=== PATIENT | female | born 1945 | race Caucasian/White ===

== ENCOUNTER → 2019-05-11 13:59 | Outpatient (ROUT) | payer MEDICARE, SELFPAY ==
[2019-05-11 14:19] LABS: Appearance Urine UA CLEAR; Bilirubin Urine UA NEGATIVE (NEGATIVE); Color Urine UA YELLOW; Glucose Urine UA TRACE g/dL (Negative); Ketones Urine UA NEGATIVE (NEGATIVE); Leukocyte Esterase Urine UA TRACE (NEGATIVE); Nitrite Urine UA NEGATIVE (Negative); Occult Blood Urine UA NEGATIVE (Negative); Protein Urine UA 2+ (Negative); Urobilinogen Urine UA 0.2 E.U./dL (0.2)
[2019-05-11 14:32] LABS: pH Urine UA 5.5 (4.5-8.0)
[2019-05-11 14:40] LABS: Bacteria Urine Occasional (0-1); Culture Indicated Urine Specimen Cultured; RBC Urine 1-5/HPF (0-5/HPF); Squamous Epithelial Cell Urine 1-5 /HPF (0-5/HPF); Transitional Epi Cells Urine 0-1/HPF (0-5/HPF); WBC Urine 5-10/HPF (0-5/HPF)
== END ==
PROVIDERS: Visit Provider Family Medicine
DX: R53.1 Weakness (principal)
CPT/HCPCS: 81001; 87086

== ENCOUNTER 2019-06-26 21:35 | Emergency (ER) | payer MEDICARE, MEDICAID, SELFPAY ==
--- NOTE | 2019-06-26 21:38 | DI.RAD.S_ITS ---
PROCEDURE: XR CHEST 1V INDICATIONS: Shortness of breath TECHNIQUE: One view of the chest was acquired. COMPARISON: None. FINDINGS: Surgical changes and devices: Median sternotomy wires.. Lungs and pleura: Lungs are clear. No pleural effusions or pneumothorax. Mediastinum: Mediastinal contours appear normal. Heart is enlarged. Bones and chest wall: No suspicious bony lesions. Overlying soft tissues appear unremarkable. IMPRESSION: No acute cardiopulmonary disease process. Dictated by: Radha Bhakta MD, PhD on 06/27/2019 at 8:20 Approved by: Radha Bhakta MD, PhD on 06/27/2019 at 8:21
[2019-06-26 21:45] VITALS: BP 174/65; PULSE 74; RESP 21; TEMP 36.4; O2SAT 23
--- NOTE | 2019-06-26 21:51 | ED_ITS ---
HPI - General Adult General Chief complaint: Shortness of Breath/Dyspnea Stated complaint: SOB Time Seen by Provider: 06/26/19 21:37 Source: patient Mode of arrival: EMS Limitations: no limitations History of Present Illness HPI narrative: Female with a history of CHF and COPD. Uses oxygen occasionally at home but not on a regular basis was brought in by EMS for evaluation of dyspnea on exertion and shortness of breath with her daily activities. She states that been going on for the past several days but worsening over the past day or so. She also states she has been having chest pressure. She is an insulin-dependent diabetic. States she has never had a heart attack before no stroke in the past. Not on anticoagulation. Her medicine list does have Lasix on it however patient does not know if she is taking it. She states that the nurses dispense her medications to her. She does state that she has had chest pressure over the past couple days. Related Data Home Medications Medication Instructions Recorded Confirmed atorvastatin 06/26/19 fluticasone propionate INTRANASAL 06/26/19 fluticasone propionate [Flovent INHALATION 06/26/19 HFA] furosemide 06/26/19 insulin glargine [Basaglar KwikPen unit SUBCUT 06/26/19 U-100 Insulin] levothyroxine 06/26/19 meloxicam 06/26/19 metformin mg 06/26/19 metoprolol succinate PO 06/26/19 omeprazole 06/26/19 potassium chloride meq PO 06/26/19 pregabalin [Lyrica] 06/26/19 sertraline mg 06/26/19 Allergies Allergy/AdvReac Type Severity Reaction Status Date / Time adhesive tape Allergy Verified 06/26/19 22:26 codeine Allergy Verified 06/26/19 22:26 exenatide Allergy Verified 06/26/19 22:26 fluconazole Allergy Verified 06/26/19 22:26 silicone Allergy Verified 06/26/19 22:26 Review of Systems Constitutional Constitutional: Denies fever(s) and Denies headache(s) ENT Ears, Nose, Mouth, and Throat: Denies headache(s) Cardiovascular Cardiovascular: Reports chest pain (Pressure), Denies edema, Reports dyspnea and Reports dyspnea on exertion Respiratory Respiratory: Denies cough, Reports dyspnea and Reports dyspnea on exertion Gastrointestinal Gastrointestinal: Denies abdominal pain, Denies nausea and Denies vomiting Genitourinary Genitourinary: Denies dysuria Musculoskeletal Musculoskeletal: Denies myalgias and Denies arthralgias Integumentary/Breasts Skin/Breast: Denies lesions and Denies rash Neurologic Neurologic: Denies behavioral changes and Denies headache(s) Psychiatric Psychiatric: Denies behavioral changes Hematologic/Lymphatic Hematologic/Lymphatic: Denies easy bleeding and Denies easy bruising Patient History Medical History Congestive heart failure (Inactive) COPD (chronic obstructive pulmonary disease) (Acute) Social History housing: custodial Exam Initial Vital Signs Initial Vital Signs: Vital Signs Temperature 97.5 F L 06/26/19 21:45 Pulse Rate 74 06/26/19 21:45 Respiratory Rate 21 06/26/19 21:45 Blood Pressure 174/65 H 06/26/19 21:45 Pulse Oximetry 23 L 06/26/19 21:45 Const General: cooperative, comfortable, well developed and well groomed Limitations: mental status not altered HENME Head: normal to inspection and normocephalic Chest Chest: normal inspection of the chest Resp Effort & Inspection: normal respiratory effort, not labored, no retractions and tachypneic Auscultation: clear to auscultation bilaterally, no crackles and no rhonchi Cardio Rate: regular rate Rhythm: regular rhythm GI Inspection: non-distended Palpation: soft Skin Lesions: no lesions Rashes: no rashes Neuro General: alert, awake and oriented x3 Cognition: normal cognition Speech: speech normal Extrem General: normal to inspection and capillary refill normal Psych Appearance: grossly normal and well kempt Course Orders Ordered: ED Orders 06/26/19 21:38 XR chest 1V Stat 06/26/19 21:39 EKG-12 Lead Stat 06/26/19 22:07 Complete Blood Count AUTO DIFF Stat Comprehensive Metabolic Panel Stat Lipase Stat NT-proBNP (BNP-Adult 18+) Stat Partial Thromboplastin Time Stat Prothrombin Time INR Stat Troponin I Stat Heparin Sodium/Dextrose (Heparin Drip) 25,000 unit in 500 mls @ 20 mls/hr IV CONT SOLIS; Protocol Last Admin: 06/26/19 23:08 Dose: 1,000 units/hr, 20 mls/hr Documented by: MARCOS Discontinued Medications Aspirin (Aspirin Chew) 324 mg PO NOW ONE Stop: 06/26/19 22:49 Last Admin: 06/26/19 23:09 Dose: 324 mg Documented by: MARCOS Furosemide (Lasix) 40 mg IV NOW ONE Stop: 06/26/19 22:42 Last Admin: 06/26/19 23:09 Dose: 40 mg Documented by: MARCOS Heparin Sodium (Porcine) (Heparin) 4,000 unit IV NOW ONE Stop: 06/26/19 22:48 Heparin Sodium (Porcine) (Heparin) 5,000 unit IV NOW ONE Stop: 06/26/19 23:06 Last Admin: 06/26/19 23:08 Dose: 5,000 unit Documented by: MARCOS Heparin Sodium/Dextrose (Heparin Drip) 25,000 unit in 500 mls @ 19.051 mls/hr IV CONT SOLIS; Protocol Vital Signs Vital signs: Vital Signs - 8 hr 06/26/19 21:45 06/26/19 22:00 06/26/19 22:24 Temperature 97.5 F L 97.5 F L Pulse Rate 74 61 74 Respiratory Rate 21 24 21 Blood Pressure 174/65 H 174/65 H Blood Pressure [Left Arm] 153/67 H Pulse Oximetry 23 L 94 93 06/26/19 22:30 06/26/19 23:04 Temperature 97.5 F L Pulse Rate 65 65 Respiratory Rate 25 H 25 H Blood Pressure 174/65 H Blood Pressure [Left Arm] 170/74 H Pulse Oximetry 95 95 Medical Decision Making Lab Data Lab results reviewed: Yes I reviewed the patient's lab results. Result diagrams: 06/26/19 22:07 06/26/19 22:07 Labs: Lab Results 06/26/19 06/26/19 06/26/19 Range/Units 22:07 22:07 22:07 WBC 17.6 H (4.5-11.0) X10^3/uL RBC 4.05 (4.0-5.2) X10^6/uL Hgb 12.2 (12.0-16.0) g/dL Hct 37.0 (36-46) % MCV 91.2 (80-100) fL MCH 30.2 (26-34) PG MCHC 33.1 (30-36) % RDW 14.1 (11.6-14.8) % Plt Count 190 (150-400) X10^3/uL Neut % (Auto) Not Reportable Lymph % (Auto) Not Reportable [place] % (Auto) Not Reportable Eos % (Auto) Not Reportable Baso % (Auto) Not Reportable Lymph # (Auto) Not Reportable [place] # (Auto) Not Reportable Baso # (Auto) Not Reportable Total Counted 100 Seg Neutrophils % 65.0 (38-70) % Band Neutrophils % 4.0 (3-7) % Lymphocytes % (Manual) 25.0 (25-45) % Monocytes % (Manual) 6.0 (2-11) % Neutrophils # (Manual) 56577 H (3238-0706) /uL RBC Morphology Normal morphology PT 12.8 H (10.1-12.7) SECONDS INR 1.1 (0.9-1.3) APTT 32 (26.4-36.2) SECONDS Sodium 137 (137-145) mmol/L Potassium 4.6 (3.4-5.1) mmol/L Chloride 98 (98-107) mmol/L Carbon Dioxide 34 H (22-32) mmol/L BUN 28 H (7-17) mg/dL Creatinine 1.10 H (0.52-1.04) mg/dL Estimated GFR 48.7 L (>60) mL/min BUN/Creatinine Ratio 25.5 H (6-22) Glucose 163 H (80-110) mg/dL Calcium 8.9 (8.4-10.2) mg/dL Total Bilirubin 0.5 (0.2-1.3) mg/dL AST 21 (14-36) IU/L ALT 14 (<35) IU/L Alkaline Phosphatase 67 (38-126) U/L Troponin I 0.309 H* (0.01-0.034) ng/mL NT-Pro-B Natriuret Pep 3040 H (<125) pg/mL Total Protein 6.4 (6.3-8.2) g/dL Albumin 3.6 (3.5-5.0) g/dL Globulin 2.8 (1.7-4.1) g/dL Albumin/Globulin Ratio 1.3 (1.0-2.8) Lipase 102 (23-300) U/L Imaging Data Chest x-ray: Attestation: I personally reviewed and interpreted this imaging study as follows: My Impression: Pulmonary edema consistent with CHF ECG Data Attestation: I personally reviewed and interpreted this ECG as follows: Prior ECG tracings: not available for review Interpretation: Sinus rhythm that Ventricular rate is [address] T wave changes MDM Narrative Medical decision making narrative: Patient with a history of CHF and COPD. Does have baseline creatinine. BNP slightly elevated. Was given 40 mg of Lasix. Is also given aspirin. Also has a positive troponin. Patient has been experiencing chest pressure for the past couple days. Unsure if this is related to the CHF or potentially causing the heart failure today. Relatively clear lung exam. Started on heparin. Discussed the case with Dr. Liu hospitalist at [facility] who accepts the patient transport. Discussed the transfer with the patient. She is stable for transfer. She expressed understanding and agreement. Discharge Plan Departure Patient Disposition: [facility] Clinical Impression: Non-ST elevation GA (NSTEMI) Congestive heart failure Qualifiers: Heart failure type: other Qualified Code(s): I50.9 - Heart failure, unspecified Prescriptions: No Action atorvastatin 40 mg tablet RF: 0 meloxicam 15 mg tablet RF: 0 potassium chloride 10 mEq tablet extended release PO RF: 0 levothyroxine 25 mcg tablet RF: 0 metformin 1,000 mg tablet RF: 0 omeprazole 20 mg capsule,delayed release(DR/EC) RF: 0 furosemide 20 mg tablet RF: 0 metoprolol succinate 25 mg tablet extended release 24 hr PO RF: 0 fluticasone propionate 50 mcg/actuation spray,suspension INTRANASAL RF: 0 sertraline 50 mg tablet RF: 0 Flovent HFA 110 mcg/actuation HFA aerosol inhaler INHALATION RF: 0 pregabalin [Lyrica] 75 mg capsule RF: 0 Basaglar KwikPen U-100 Insulin 100 unit/mL (3 mL) insulin pen SUBCUT RF: 0 Referrals: Xavi Condon MD [Primary Care Provider] -
[2019-06-26 22:00] VITALS: BP 153/67; PULSE 61; RESP 24; O2SAT 94
[2019-06-26 22:21] LABS: Hemoglobin 12.2 g/dL (12.0-16.0); INR 1.1 (0.9-1.3); Mean Corpuscular HGB Conc 33.1 % (30-36); Mean Corpuscular Hemoglobin 30.2 PG (26-34); Mean Corpuscular Volume 91.2 fL (80-100); Platelet Count 190 X10^3/uL (150-400); Prothrombin Time 12.8 SECONDS (10.1-12.7); Red Blood Cell Count 4.05 X10^6/uL (4.0-5.2); Red Cell Distribution Width 14.1 % (11.6-14.8); White Blood Cell Count 17.6 X10^3/uL (4.5-11.0)
[2019-06-26 22:23] LABS: Add Manual Diff / Slide Review YES
[2019-06-26 22:24] VITALS: BP 174/65; PULSE 74; RESP 21; TEMP 36.4; O2SAT 93
[2019-06-26 22:24] LABS: Alanine Aminotransferase 14 IU/L (<35); Albumin 3.6 g/dL (3.5-5.0); Albumin Globulin Ratio 1.3 (1.0-2.8); Alkaline Phosphatase 67 U/L (38-126); Aspartate Aminotransferase 21 IU/L (14-36); BUN Creatinine Ratio 25.5 (6-22); Bilirubin Total 0.5 mg/dL (0.2-1.3); Blood Urea Nitrogen 28 mg/dL (7-17); Calcium 8.9 mg/dL (8.4-10.2); Carbon Dioxide 34 mmol/L (22-32); Chloride 98 mmol/L (98-107); Estimated Glomerular Filt Rate 48.7 mL/min (>60); Globulin 2.8 g/dL (1.7-4.1); Glucose 163 mg/dL (80-110); HEMOLYSIS 15 (0-50); Lipase 102 U/L (23-300); PTT Partial Thromboplastin Tim 32 SECONDS (26.4-36.2); Potassium 4.6 mmol/L (3.4-5.1); Sodium 137 mmol/L (137-145); Total Protein 6.4 g/dL (6.3-8.2)
[2019-06-26 22:30] VITALS: BP 170/74; PULSE 65; RESP 25; O2SAT 95
[2019-06-26 22:36] LABS: NT-proBNP (BNP-Adult 18+) 3040 pg/mL (<125)
[2019-06-26 22:39] LABS: Troponin I 0.309 ng/mL (0.01-0.034)
[2019-06-26 23:04] VITALS: BP 174/65; PULSE 65; RESP 25; TEMP 36.4; O2SAT 95
[2019-06-26] MEDS: HEPARIN DRIP 25,000 UNIT/500 ML IV.SOLN 20 UNIT IV (23:08)
[2019-06-26] MEDS: HEPARIN 5,000 UNIT/ML VIAL 5000 UNIT IV (23:08)
[2019-06-26] MEDS: FUROSEMIDE 40 MG/4 ML VIAL IV (23:09)
[2019-06-26] MEDS: ASPIRIN 81 MG CHEW TAB 324 MG PO (23:09)
[2019-06-26 23:20] LABS: Total Cells Counted 100
[2019-06-26 23:24] LABS: Neutrophils Absolute Manual 12144 /uL (3000-5900)
[2019-06-26 23:25] LABS: RBC Morphology Normal Morphology
[2019-06-27 00:25] VITALS: BP 145/82; PULSE 63; RESP 23; O2SAT 96
== END 2019-06-27 00:25 | disposition short-term general hospital (02) ==
PROVIDERS: Emergency Provider Emergency Medicine; PCP Family Medicine
DX: I21.4 Non-ST elevation (NSTEMI) myocardial infarction (principal); I50.9 Heart failure, unspecified; E11.8 Type 2 diabetes mellitus with unspecified complications; Z79.4 Long term (current) use of insulin; R06.02 Shortness of breath
CPT/HCPCS: 71045; 80053; 83690; 83880; 84484; 85025; 85610; 85730; 93005; 96365; 96375; 99284; 99285; J1644; J1940